=== PATIENT | female | born 1950 | race Caucasian/White ===

== ENCOUNTER 2016-12-14 14:27 | Emergency (ER) | payer MEDICARE ==
[~2016-12-14] VITALS: Ht 165.1 cm; Wt 68.5 kg
[~2016-12-14 14:27] MED LIST: AMLO5TAB22 PO; ERYT1O RIGHT EYE; SYNT75TA PO; VITA400C28 PO
[2016-12-14 14:31] VITALS: BP 155/81; PULSE 77; RESP 16; TEMP 98.4; O2SAT 98
[2016-12-14] MEDS ORDERED: LEVO.075 PO (15:20)
[2016-12-14] MEDS ORDERED: AMLO5TAB2 PO (15:20)
[2016-12-14] MEDS ORDERED: ALPR.25 PO (15:20)
--- NOTE | 2016-12-14 15:52 | PD ---
HPI Chief Complaint: Injury Time Seen by Provider: 15:47 Travel History International Travel<30 days: No Contact w/Intl Traveler<30days: No Traveled to known affect area: No History of Present Illness HPI Patient is a 66-year-old female presenting with left foot pain. Approximately 4 hours prior to exam she was wearing wedge heels and lost her footing while in the garage and suffered an inversion injury. She is in pain and swelling on the dorsolateral aspect of the foot or on the fourth and fifth metatarsals, worse around the fifth metatarsal. Pain is on the plantar aspect as well. She denies any pain in the toes, ankle or knee. She denies any significant other or calcaneal tenderness. He has had difficulty bearing weight. 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 She denies any new symptoms and toes but has chronic sensation loss as well as no ability to flex or extend the fourth and fifth toes. She denies any other injuries and did not hit her head. PFSH Past Medical History Cancer: Yes (bladder) High Cholesterol: Yes Diminished Hearing: No Hypertension: Yes Thyroid Disease: Yes Past Surgical History Appendectomy: Yes Hysterectomy: Yes Other Surgery: Yes (bladder surgery ( cancer removed )) Social History Alcohol Use: No Tobacco Use: Yes (11/03 ppd) Allergies-Medications (Allergen,Severity, Reaction): Coded Allergies: No Known Allergies (Unverified , 12/14/16) Reported Meds & Prescriptions Reported Meds & Active Scripts Active Reported Xanax (Alprazolam) 0.25 Mg Tab 0.125 Mg PO BID Synthroid (Levothyroxine Sodium) 75 Mcg Tab 75 Mcg PO DAILY Amlodipine (Amlodipine Besylate) 5 Mg Tab 5 Mg PO DAILY Review of Systems HENT: No: Headaches Musculoskeletal: Positive: Other (see the history of present illness) Neurologic: Positive: Focal Abnormalities (chronic, not acute), Sensory Disturbance (chronic, not acute), No: Weakness, Syncope, Paresthesia Physical Exam Narrative GENERAL: Well-developed and well-nourished adult female in no acute distress. SKIN: Warm and dry. Good turgor without tenting. HEAD: Normocephalic and atraumatic. EYES: PERRL bilaterally, 5mm. EOMI bilaterally. No injection or icterus present. No proptosis. Lids without edema or erythema. CARDIOVASCULAR: Regular rate and rhythm without murmurs, rubs, clicks or gallops. Dorsalis pedis and posterior tibial pulses 2+ bilaterally. Capillary refill less than 2 seconds distal tip of all toes of left foot. No pretibial edema. RESPIRATORY: Clear to auscultation bilaterally with symmetrical rise and fall, no distress or use of accessory muscles. MUSCULOSKELETAL: Patient has edema and ecchymosis to the dorsal lateral left foot over the fourth and fifth metatarsals. Pain over the base of the fifth metatarsal. No navicular or tarsal tenderness. No pain with palpation of the lateral and medial malleolus of the left ankle. There is a surgical scar overlying the fourth metatarsal. Normal range of motion in flexion and extension of the left ankle and first through third digits of the left foot. Cannot move the fourth and fifth toes the left foot chronically. No pain with palpation of the left knee normal range of motion in the left knee. Patient freely moving all four extremities spontaneously. Extremities without clubbing or cyanosis. No obvious deformities. NEUROLOGIC: CN II-XII grossly intact. Awake and alert. Strength 5/5 knee flexion, knee extension, plantar dorsiflexion. Sensation intact to the distal tip of all toes of left foot but reduced in the fourth and fifth toes which is chronic. Normal speech. PSYCHIATRIC: Appropriate mood and affect; insight and judgment normal. Data Data Last Documented VS Vital Signs Date Time Temp Pulse Resp B/P Pulse Ox O2 Delivery O2 Flow Rate FiO2 12/14/16 14:31 98.4 77 16 155/81 98 Orders Foot, Complete ([id number]) (12/14/16 15:46) Ice/Cold Pack (12/14/16 15:46) Splint Or Brace Apply/Monitor (12/14/16 17:50) Crutches (12/14/16 17:50) MDM Medical Decision Making Medical Screen Exam Complete: Yes Emergency Medical Condition: Yes Interpretation(s) Last 24 hours Impressions Foot X-Ray 12/14/16 1546 Signed Impressions: Service Date/Time: Wednesday, December 14, 2016 16:54 - CONCLUSION: 1. Mildly displaced fracture through base of left fifth metatarsal. Sunday Kirkpatrick MD Differential Diagnosis Physical metatarsal avulsion fracture versus Schilling fracture versus foot sprain Narrative Course Patient is 86-year-old female presenting with fifth metatarsal pain after inversion injury several hours prior to exam. She has chronic problems with the fourth and fifth digits of the foot with range of motion and reduced sensation secondary to injury 18 years prior, nothing acute. No evidence of other injury. Given the point tenderness is most likely represents a fracture. Patient declines analgesia. Was given ice ordered x-ray of the foot which shows a mildly displaced fracture at the base of the fifth metatarsal. This does appear to be proximal to the junction of the fourth and fifth metatarsal bases, likely not requiring surgical repair. Given her history of injury to this area and the proximity to this region we'll place patient in a posterior short leg splint and make her nonweightbearing until she follows up with a grading machine feeder as there is a possibility this could be surgical. Given referral for Dr. Brennan. Patient declines any prescription for analgesia.See discharge paperwork for further instructions. The plan was discussed with the patient who acknowledged their understanding and agreement. Reinforced the follow-up with primary care is critically important. Patient instructed on emergent conditions that should prompt return to ED. Diagnosis Primary Impression: Fracture of fifth metatarsal bone of left foot Qualified Code: S92.352A - Closed displaced fracture of fifth metatarsal bone of left foot, initial encounter Referrals: Shon Brennan DPM Patient Instructions: Foot Fracture in Adults (ED), General Instructions Additional Instructions: Home pain medication as needed Keep splint on at all times. Do NOT remove until cleared. Do not get splint wet Avoid maneuvers that aggravate pain Recommend no weightbearing on the left foot until cleared by podiatry, use crutches when walking Elevate when at rest Follow-up with grading machine feeder, Dr. Brennan this week. Call his office tomorrow morning for follow-up Return to the ED for any acute worsening of symptoms Disposition: 01 DISCHARGE HOME Condition: Stable Jose Moran III Dec 14, 2016 15:52
--- NOTE | 2016-12-14 17:30 | RADHPO ---
EXAM DATE/TIME: 12/14/2016 16:54 [facility] COMPARISON: No previous studies available for comparison. INDICATIONS : Fell twisting left foot MEDICAL HISTORY : None. SURGICAL HISTORY : left foot surgery ENCOUNTER: Initial ACUITY: 1 day PAIN SCORE: 6/10 LOCATION: Left foot FINDINGS: There is a mildly displaced fracture through the base of the fifth metatarsal. No dislocation. No oth er fractures identified. CONCLUSION: 1. Mildly displaced fracture through base of left fifth metatarsal. Sunday Kirkpatrick MD on December 14, 2016 at 17:28 Board Certified Radiologist. This report was verified electronically.
[2016-12-14 18:17] VITALS: BP 118/84
== END 2016-12-14 18:47 | disposition home or self-care (01) ==
LOC: PHED 14:27 → PHEFT 18:47
DX: S92.352A Displaced fracture of fifth metatarsal bone, left foot, initial encounter for closed fracture (principal); E78.00 Pure hypercholesterolemia, unspecified; I10 Essential (primary) hypertension; E07.9 Disorder of thyroid, unspecified; F17.210 Nicotine dependence, cigarettes, uncomplicated; X58.XXXA Exposure to other specified factors, initial encounter; Y92.008 Other place in unspecified non-institutional (private) residence as the place of occurrence of the external cause; Y99.8 Other external cause status
CPT/HCPCS: 29515; 73630